=== PATIENT | male | born 1970 ===

== ENCOUNTER 2023-05-18 06:19 | Day surgery (SDC) | payer OTHER ==
[~2023-05-18] VITALS: Ht 170.2 cm; Wt 88.5 kg
[~2023-05-18 06:19] MED LIST: AMLO PO; COZAAR100 MG PO; LIPI PO
== END 2023-05-18 18:05 | disposition home or self-care (01) ==
LOC: CIR.AMB 06:19
PROVIDERS: ATTEND Colon & Rectal Surgery
DX: D12.8 Benign neoplasm of rectum (principal); D12.9 Benign neoplasm of anus and anal canal; K64.1 Second degree hemorrhoids; Z20.822 Contact with and (suspected) exposure to COVID-19; I10 Essential (primary) hypertension; E78.5 Hyperlipidemia, unspecified